=== PATIENT | male | born 1975 | race Two or more races ===

== ENCOUNTER 2018-03-12 10:38 | Emergency (ER) | payer OTHER ==
[~2018-03-12] VITALS: Ht 157.5 cm; Wt 108.9 kg
[~2018-03-12 10:38] MED LIST: COZAAR50 MG PO; METFORMIN HCL500 MG PO
== END 2018-03-12 13:56 | disposition home or self-care (01) ==
LOC: ER 10:38
DX: K29.70 Gastritis, unspecified, without bleeding (principal)